=== PATIENT | male | born 1985 | race Caucasian/White ===

== ENCOUNTER 2019-07-17 15:29 | Emergency (ER) | payer OTHER ==
[~2019-07-17] VITALS: Ht 177.8 cm; Wt 136.1 kg
[~2019-07-17 15:29] MED LIST: MOTRIN800 MG PO; NO DAILY MEDS; TOBRADEX 0.1%-0.5 ML OPH
[2019-07-17 15:30] VITALS: BP 132/83
[2019-07-17] MEDS ORDERED: TOBRAMYCIN 5 ML5 M1 OPH (16:03)
[2019-07-17] MEDS ORDERED: CEPHALEXIN500 M1 PO (16:03)
== END 2019-07-17 16:11 | disposition home or self-care (01) ==
LOC: ED 15:29
DX: H10.9 Unspecified conjunctivitis (principal)

== ENCOUNTER 2022-04-26 14:14 | Emergency (ER) | payer BC ==
[~2022-04-26] VITALS: Wt 133.8 kg
[~2022-04-26 14:14] MED LIST changes: +CEPHALEXIN500 M1 PO; +TOBRAMYCIN 5 ML5 M1 OPH
[2022-04-26 14:17] VITALS: BP 133/88
== END 2022-04-26 15:47 | disposition home or self-care (01) ==
LOC: ED 14:14
DX: S46.912A Strain of unspecified muscle, fascia and tendon at shoulder and upper arm level, left arm, initial encounter (principal); M79.632 Pain in left forearm; W18.49XA Other slipping, tripping and stumbling without falling, initial encounter; Y93.89 Activity, other specified; Y92.89 Other specified places as the place of occurrence of the external cause; Y99.8 Other external cause status